=== PATIENT | male | born 1980 | race African-American/Black ===

== ENCOUNTER 2019-09-19 08:33 | Emergency (ER) | payer BC ==
[2019-09-19] MEDS ORDERED: IBUPROFEN 800 MG TABLET PO ONE (08:53)
--- NOTE | 2019-09-19 08:55 | ER Document Report ---
ED Hand/Wrist Injury - General Chief Complaint: Hand Pain Stated Complaint: LEFT HAND PAIN, SWELLING Time Seen by Provider: 09/19/19 08:44 Primary Care Provider: [facility] [Provider Group] - Follow up as needed [facility] [Provider Group] - Follow up as needed HALINA PRECIADO MD [Primary Care Provider] - Follow up as needed Mode of Arrival: Ambulatory Information source: Patient Notes: Patient presents complaining of left hand pain and wrist tenderness that started yesterday. Patient states initially he had pain only in his thumb and today it localized to the left medial wrist area. Patient is left-hand dominant. Madeleine ent states that he has been moving and has been doing a lot of lifting. Patient denies any specific injury. Patient denies any fever. Patient denies any history of gout. Patient denies any history of IV drug abuse. Pain is worse with movement. - HPI Injury to: Wrist Onset: Yesterday Timing: Worse Quality of pain: Achy Pain Level: 3 Context: Swelling - Related Data Allergies/Adverse Reactions: Penicillins Allergy (Verified 09/19/19 09:00) Past Medical History - General Information source: Patient - Social History Smoking Status: Never Smoker Frequency of alcohol use: None Drug Abuse: None Occupation: [employer] Lives with: Family Family History: Reviewed & Not Pertinent - Medical History Medical History: Negative Surgical Hx: Negative Review of Systems - Review of Systems Constitutional: No symptoms reported. denies: Fever EENT: No symptoms reported Cardiovascular: No symptoms reported Respiratory: No symptoms reported. denies: Cough Gastrointestinal: No symptoms reported. denies: Nausea, Vomiting Genitourinary: No symptoms reported Male Genitourinary: No symptoms reported Musculoskeletal: Joint pain - Left wrist Skin: Other - Redness over the left wrist Hematologic/Lymphatic: No symptoms reported Neurological/Psychological: No symptoms reported Physical Exam - Vital signs Vitals: Temp Pulse Resp BP Pulse Ox 98.9 F 77 14 127/91 H 98 09/19/19 08:37 09/19/19 08:37 09/19/19 08:37 09/19/19 08:37 09/19/19 08:37 - General General appearance: Appears well, Alert In distress: None - HEENT Head: Normocephalic, Atraumatic Eyes: Normal Conjunctiva: Normal Nasal: Normal Mouth/Lips: Normal Mucous membranes: Normal - Respiratory Respiratory status: No respiratory distress Chest status: Nontender Breath sounds: Normal. No: Rales, Rhonchi, Stridor, Wheezing Chest palpation: Normal - Cardiovascular Rhythm: Regular Heart sounds: S1 appreciated, S2 appreciated Pulses: Normal: Radial - Back Back: Normal - Extremities General upper extremity: Tender - right wrist, Edema, Normal strength General lower extremity: Normal inspection, Normal strength Shoulder: Normal, Nontender Arm: Normal, Nontender Elbow: Normal, Nontender Forearm: Tender - Mild tenderness along ulnar aspect of left forearm Wrist: Tender - Tenderness to medial aspect of left wrist, mild erythema and calor, pain reproduced with range of motion and palpation of the area. No: Deformity, Dislocation, Ecchymosis, Limited ROM Hand: Tender - Mild tenderness to thenar eminence of left hand and the base of the left thumb, Swelling. No: Deformity, Instability, Tendon deficit Hip: Normal Thigh: Normal Knee: Normal - Neurological Neuro grossly intact: Yes Cognition: Normal Orientation: AAOx4 Kush Coma Scale Eye Opening: Spontaneous Kush Coma Scale Verbal: Oriented Kush Coma Scale Motor: Obeys Commands [place] Coma Scale Total: 15 - Psychological Associated symptoms: Normal affect, Normal mood - Skin Skin Temperature: Warm Skin Moisture: Dry Skin Color: Erythema - Medial aspect of left wrist Course - Re-evaluation Re-evalutation: 09/19/19 11:53 Patient without any leukocytosis, fever or elevation in ESR CRP. No drainable fluid collection noted on ultrasound. Suspect likely overuse injury given recent increase activities involved in moving. Will immobilize wrist and start patient on anti-inflammatories. Good return precautions discussed with patient. 09/19/19 11:[address] Lee regarding patient presentation and diagnostic evaluation. No additional testing advised, does not recommend any antibiotic use. - Vital Signs Vital signs: Temp Pulse Resp BP Pulse Ox 98.1 F 68 18 122/83 99 09/19/19 12:03 09/19/19 12:03 09/19/19 12:03 09/19/19 12:03 09/19/19 12:03 - Laboratory Result Diagrams: 09/19/19 09:16 09/19/19 09:16 Laboratory results interpreted by me: Labs- All tests 24 hr 09/19/19 09/19/19 09:16 09:16 WBC 8.7 RBC 4.71 Hgb 13.6 Hct 40.9 MCV 87 MCH 28.9 MCHC 33.3 RDW 13.0 Plt Count 381 Lymph % (Auto) 31.8 [place] % (Auto) 10.0 Eos % (Auto) 0.9 Baso % (Auto) 0.6 Absolute Neuts (auto) 4.9 Absolute Lymphs (auto) 2.8 Absolute Monos (auto) 0.9 Absolute Eos (auto) 0.1 Absolute Basos (auto) 0.1 Seg Neutrophils % 56.7 ESR 10 Sodium 139.7 Potassium 4.1 Chloride 104 Carbon Dioxide 29 Anion Gap 7 BUN 12 Creatinine 0.88 Est GFR ( Amer) > 60 Est GFR (MDRD) Non-Af > 60 Glucose 110 Uric Acid 7.2 Calcium 9.7 C-Reactive Protein < 5.0 - Diagnostic Test Radiology reviewed: Reports reviewed Procedures - Immobilization Left Wrist Pre-Proc Neuro Vasc Exam: Normal Immobilizer type: Cock-up Performed by: PCT Post-Proc Neuro Vasc Exam: Normal Alignment checked and good: Yes Discharge - Discharge Clinical Impression: Tendinitis Condition: Stable Disposition: HOME, SELF-CARE Instructions: Temporary Splint ([facility]), Tendonitis ([facility]) Additional Instructions: Return immediately for any new or worsening symptoms: Fever, increased pain, increased swelling, increased redness, any new concerning symptoms Followup with your primary care provider, call tomorrow to make a followup appointment Wear splint for the next 4 to 5 days and then remove. Prescriptions: Naproxen [Naprosyn 250 Nmg Tablet] 1 tab PO BID #14 tablet Forms: Return to Work Referrals: HALINA PRECIADO MD [Primary Care Provider] - Follow up as needed [facility] [Provider Group] - Follow up as needed [facility] [Provider Group] - Follow up as needed
[2019-09-19 09:31] LABS: ABSOLUTE BASOPHILS # (AUTO) 0.1 10^3/uL (0.0-0.2); ABSOLUTE EOSINOPHILS # (AUTO) 0.1 10^3/uL (0.0-0.6); ABSOLUTE LYMPHOCYTES (AUTO) 2.8 10^3/uL (0.5-4.7); ABSOLUTE MONOCYTES (AUTO) 0.9 10^3/uL (0.1-1.4); ABSOLUTE NEUT (AUTO) 4.9 10^3/uL (1.7-8.2); BASOPHILS % (AUTO) 0.6 % (0-2); EOSINOPHILS % (AUTO) 0.9 % (0-6); HEMATOCRIT 40.9 % (37.9-51.0); HEMOGLOBIN 13.6 g/dL (13.5-17.0); LYMPHOCYTES % (AUTO) 31.8 % (13-45); MEAN CORPUSCULAR HEMOGLOBIN 28.9 pg (27.0-33.4); MEAN CORPUSCULAR HGB CONC 33.3 g/dL (32.0-36.0); MEAN CORPUSCULAR VOLUME 87 fl (80-97); PLATELET COUNT 381 10^3/uL (150-450); RED BLOOD COUNT 4.71 10^6/uL (4.35-5.55); SEGMENTED NEUTROPHILS % (AUTO) 56.7 % (42-78); TOTAL CELLS COUNTED % (AUTO) 100 %; WHITE BLOOD COUNT 8.7 10^3/uL (4.0-10.5)
[2019-09-19 09:46] LABS: ANION GAP 7 (5-19); BLOOD UREA NITROGEN 12 mg/dL (7-20); CALCIUM 9.7 mg/dL (8.4-10.2); CARBON DIOXIDE 29 mmol/L (22-30); CHLORIDE 104 mmol/L (98-107); GLUCOSE 110 mg/dL (75-110); POTASSIUM 4.1 mmol/L (3.6-5.0); URIC ACID 7.2 mg/dL (3.5-8.5)
[2019-09-19 09:47] LABS: C-REACTIVE PROTEIN < 5.0 mg/L (<10.0)
[2019-09-19 10:09] LABS: ERYTHROCYTE SEDIMENTATION RATE 10 mm/hr (0-15)
--- NOTE | 2019-09-19 11:07 | RADIOLOGY REPORT (SQ) ---
EXAM DESCRIPTION: U/S EXTREMITY NONVASCULAR LTD IMAGES COMPLETED DATE/TIME: 09/19/2019 10:36 am REASON FOR STUDY: L wrist pain, swelling COMPARISON: None. TECHNIQUE: Static and dynamic grayscale and color Doppler images of the left wrist were obtained. F or comparison the contralateral side was also evaluated. LIMITATIONS: None. FINDINGS: There is subcutaneous edema in the left wrist (the site of clinical concern). There is no subcutaneous fluid collection. IMPRESSION: Subcutaneous edema in the left wrist. There is no subcutaneous fluid collection. TECHNICAL DOCUMENTATION: JOB ID: [id number] 2010 [employer]- All Rights Reserved Reading location - IP/workstation name: [email or web address]
[2019-09-19 12:07] VITALS: BP 122/83
== END 2019-09-19 12:06 | disposition home or self-care (01) ==
LOC: ER 08:33
DX: M77.9 Enthesopathy, unspecified (principal); M25.532 Pain in left wrist; L53.9 Erythematous condition, unspecified; Z88.0 Allergy status to penicillin
CPT/HCPCS: 36415; 76882; 80048; 84550; 85025; 85652; 86140; 99284